=== PATIENT | male | born 1975 | race American Indian/Alaskan Native ===

== ENCOUNTER 2019-07-29 18:26 | Emergency (ER) | payer OTHER, MEDICAID ==
[2019-07-29] MEDS ORDERED: SODIUM CHLORIDE 0.9% 1000 ML 2,000 ML IV ONE (19:23)
--- NOTE | 2019-07-29 19:29 | Emergency Department Report ---
ED General Adult HPI - General Chief complaint: Urogenital-Male Stated complaint: BLOOD IN URINE Time Seen by Provider: 07/29/19 18:51 Source: family, EMS (EMS records not available at time of chart dictation.), RN notes reviewed, old records reviewed Mode of arrival: Stretcher Limitations: Physical Limitation - History of Present Illness Initial comments: Patient is nonverbal. Entire history obtained from patient's mother, who is his caregiver, as well as review of old medical records. The patient has chronic respiratory failure, on chronic home oxygen, history of condom catheter, history of urinary tract infection, history of type 2 diabetes, history of traumatic brain injury, nonverbal at baseline, G-tube for feeding, contracted limbs. Patient is DO NOT RESUSCITATE as per his mother. His mother brings the patient in for evaluation of new onset hematuria. This has started within the past day or so. It is constant. It does not radiate anywhere. It does not have exacerbating or relieving factors that she is aware. The patient's mother indicates that he's not started any new medications. He's been coughing a little bit too, and may have some shortness of breath. She is worried about pneumonia. The patient's mother indicates no recent travel or surgeries. She indicates that she is not interested in any surgical interventi on as per his goals of care. She indicates that she is okay with IV fluids, antibiotics, and symptom control. -: Gradual Severity scale (0 -10): 0 Quality: other Consistency: other Improves with: other Worsens with: other - Related Data Home Medications Medication Instructions Recorded Confirmed Last Taken Gabapentin 300 mg PO Q8HR 09/13/16 09/13/16 09/12/16 08:00 Previous Rx's Medication Instructions Recorded Last Taken Type ALBUTEROL NEB's [Proventil 0.083% 2.5 mg IH TID PRN 30 Days neb 09/16/16 Unknown Rx NEBS] Polyethylene Glycol 3350 [Miralax 17 gm FEEDTUBE BID PRN 30 Days 09/16/16 Unknown Rx 3350] powd.pack levoFLOXacin [Levaquin TAB] 500 mg PO QDAY #5 tablet 09/16/16 Unknown Rx levoFLOXacin [Levaquin] 750 mg PO QDAY #10 tablet 07/29/19 Unknown Rx Allergies Allergy/AdvReac Type Severity Reaction Status Date / Time No Known Allergies Allergy Verified 09/12/16 17:02 ED Review of Systems ROS: Stated complaint: BLOOD IN URINE Other details as noted in HPI Constitutional: denies: fever Respiratory: cough, shortness of breath Cardiovascular: denies: syncope Gastrointestinal: other (chronic black stool secondary to iron sulfate). denies: nausea, vomiting, diarrhea, hematemesis, melena, hematochezia Genitourinary: hematuria Musculoskeletal: as per HPI Skin: as per HPI Neurological: as per HPI Psychiatric: as per HPI Hematological/Lymphatic: as per HPI ED Past Medical Hx - Past Medical History Hx Hypertension: Yes Hx GERD: Yes Additional medical history: traumatic brain injury at 16yrs old - Surgical History Additional Surgical History: PEG - Social History Smoking Status: Never Smoker Substance Use Type: None - Medications Home Medications: Home Medications Medication Instructions Recorded Confirmed Last Taken Type Gabapentin 300 mg PO Q8HR 09/13/16 09/13/16 09/12/16 08:00 History ALBUTEROL NEB's [Proventil 0.083% 2.5 mg IH TID PRN 30 Days neb 09/16/16 Unknown Rx NEBS] Polyethylene Glycol 3350 [Miralax 17 gm FEEDTUBE BID PRN 30 Days 09/16/16 Unknown Rx 3350] powd.pack levoFLOXacin [Levaquin TAB] 500 mg PO QDAY #5 tablet 09/16/16 Unknown Rx levoFLOXacin [Levaquin] 750 mg PO QDAY #10 tablet 07/29/19 Unknown Rx ED Physical Exam - General Limitations: Physical Limitation, Other (chaperoned by CAMILLA Bull) General appearance: in no apparent distress - Head Head exam: Present: atraumatic, normocephalic - Eye Eye exam: Present: normal appearance - ENT ENT exam: Present: normal orophraynx, normal external ear exam - Neck Neck exam: Present: normal inspection, full ROM. Absent: tenderness, meningismus - Respiratory Respiratory exam: Present: decreased breath sounds. Absent: respiratory distress, wheezes, rales, rhonchi, stridor - Cardiovascular Cardiovascular Exam: Present: normal rhythm, tachycardia, normal heart sounds. Absent: systolic murmur, diastolic murmur, rubs, gallop - GI/Abdominal GI/Abdominal exam: Present: soft. Absent: distended, tenderness, guarding, rebound, rigid, pulsatile mass - Rectal Rectal exam: Present: normal inspection, other (small sacral wounds noted.) - exam: Present: normal inspection, other (condom catheter in place draining clear red urine) - Extremities Exam Extremities exam: Present: normal inspection, other (2+ pulses noted in the bilateral upper and lower extremities. The pelvis is stable. There is no long bony tenderness. The muscular compartments are soft. There is no redness, pus, streaking or erythema.) - Back Exam Back exam: Present: normal inspection. Absent: CVA tenderness (R), CVA tenderness (L), paraspinal tenderness, vertebral tenderness - Neurological Exam Neurological exam: Present: other (the patient is awake. The patient is nonverbal. The patient has contractures bilateral upper and lower extremities.) - Skin Skin exam: Present: warm, dry, intact, normal color. Absent: rash ED Course Vital Signs 07/29/19 07/29/19 07/29/19 18:55 19:00 19:02 Temperature Pulse Rate 104 H 104 H 105 H Respiratory 21 26 H 22 Rate Blood Pressure 115/81 Blood Pressure [Right] O2 Sat by Pulse 100 100 Oximetry 07/29/19 07/29/19 07/29/19 19:08 19:30 20:00 Temperature Pulse Rate 105 H 104 H 106 H Respiratory 22 21 21 Rate Blood Pressure 115/81 Blood Pressure 115/81 [Right] O2 Sat by Pulse 100 100 100 Oximetry 07/29/19 07/29/19 07/29/19 20:30 20:52 20:53 Temperature 98.7 F Pulse Rate 107 H Respiratory 20 24 Rate Blood Pressure Blood Pressure [Right] O2 Sat by Pulse 100 Oximetry - Reevaluation(s) Reevaluation #1: 07/29/19 20:50 Differential diagnosis, including but not limited to: Chronic respiratory failure, bronchitis, pneumonia, urinary tract infection Assessment and plan: 44-year-old gentleman with mother, brought for new onset painless hematuria, and cough and shortness of breath. The patient is afebrile with reassuring vital signs with the exception of mild tachycardia. This is most likely secondary to dehydration. Extensive discussion had with mother regarding goals of care. She does not want any invasive interventions to be administered, she does not want any surgical or operative interventions to be administered. We did have a long discussion about the possibility of a pulmonary embolism. We talked about that even if a PE were identified, therapy would include systemic anticoagulatio n, and possible surgical interventions depending on the size. The mother is not interested in this. This conversation was witnessed by nurse Kera Bull Screening laboratory studies reviewed and appreciated. X-ray of the chest is pending. Urinalysis is pending at this time. Reevaluation #2: 07/29/19 22:10 Laboratory studies reviewed and appreciated. X-ray of the chest evaluated by myself. Secondary to technical issues, the x-ray technologist is not able to transmit the x-ray to radiology for formal interpretation. Urinalysis is also appreciated. Patient will be covered empirically with Levaquin, which should cover urinary pathogens as well as pulmonary pathogens. Mother it is endorsing desire to be discharged. ED Medical Decision Making - Lab Data Result diagrams: 07/29/19 19:59 07/29/19 19:59 Vital Signs 07/29/19 07/29/19 19:02 19:08 Pulse Rate 105 H 105 H Respiratory 22 22 Rate Blood Pressure 115/81 [Right] O2 Sat by Pulse 100 100 Oximetry Lab Results 07/29/19 07/29/19 07/29/19 Range/Units 19:59 19:59 19:59 WBC 8.8 (4.5-11.0) K/mm3 RBC 3.94 (3.65-5.03) M/mm3 Hgb 11.5 L (11.8-15.2) gm/dl Hct 38.1 (35.5-45.6) % MCV 97 H (84-94) fl MCH 29 (28-32) pg MCHC 30 L (32-34) % RDW 13.8 (13.2-15.2) % Plt Count 168 (140-440) K/mm3 PT 13.3 (12.2-14.9) Sec. INR 1.00 (0.87-1.13) APTT 100.0 H* (24.2-36.6) Sec. Sodium 139 (137-145) mmol/L Potassium 5.1 H (3.6-5.0) mmol/L Chloride 93.6 L (98-107) mmol/L Carbon Dioxide 36 H (22-30) mmol/L Anion Gap 15 mmol/L BUN 12 (9-20) mg/dL Creatinine 0.2 L (0.8-1.5) mg/dL Estimated GFR > 60 ml/min BUN/Creatinine Ratio 60 % Glucose 78 (75-100) mg/dL Calcium 9.4 (8.4-10.2) mg/dL Total Bilirubin 0.20 (0.1-1.2) mg/dL AST 22 (5-40) units/L ALT 19 (7-56) units/L Alkaline Phosphatase 119 (35-129) units/L Total Creatine Kinase 39 L (55-170) units/L Total Protein 8.1 (6.3-8.2) g/dL Albumin 3.3 L (3.9-5) g/dL Albumin/Globulin Ratio 0.7 % Rectal temperature 98.7 degrees. - Radiology Data Radiology results: pending, image reviewed interpreted by me: Single portable x-ray of the chest just left sided pneumonia/infiltrate Critical care attestation.: If time is entered above; I have spent that time in minutes in the direct care of this critically ill patient, excluding procedure time. ED Disposition Clinical Impression: Hematuria, Dyspnea Disposition: DC-01 TO HOME OR SELFCARE Is pt being admited?: No Does the pt Need Aspirin: No Condition: Stable Additional Instructions: Cultures were sent today, and results will be available in the next 3-5 days. Please have your primary care doctor contact the medical records department to obtain culture results. Take the antibiotic as directed. Follow-up with your primary care doctor within the next 3-5 days. X-ray of the chest was interpreted by ER physician as possible left-sided pneumonia. However, a formal radiology interpretation will be rendered within the next 12 hours. Occasionally, radiology interpretation is different than the initial interpretation. Therefore, please have your primary care doctor contact the medical records department to obtain formal x-ray interpretation. Please continue current outpatient medications. Patient may receive the Levaquin antibiotics through his feeding tube. Please return to the emergency room right away with projectile vomiting, change in mental status, confusion, inability to tolerate liquid feeds, new, worsening or different symptoms not present on the initial emergency room evaluation. Recommends patient follow up with an outpatient primary care doctor or urology specialist for blood in the urine within the next 7-10 days. Patient will need to follow-up to ensure resolution of presumed infection, and to ensure that the patient does not have a genitourinary tumor, cancer, malignancy. Referrals: NILSA HAIR MD [Referring] - 3-5 Days [facility] [Provider Group] - 3-5 Days [facility] [Provider Group] - 3-5 Days
[2019-07-29 20:15] LABS: Hematocrit 38.1 % (35.5-45.6); Hemoglobin 11.5 gm/dl (11.8-15.2); Mean Corpuscular HGB Conc 30 % (32-34); Mean Corpuscular Volume 97 fl (84-94); Platelet Count 168 K/mm3 (140-440); Red Blood Count 3.94 M/mm3 (3.65-5.03); Red Cell Distribution Width 13.8 % (13.2-15.2)
[2019-07-29 20:28] LABS: Alanine Aminotransferase 19 units/L (7-56); Albumin 3.3 g/dL (3.9-5); BUN/Creatinine Ratio 60; Blood Urea Nitrogen 12 mg/dL (9-20); Calcium 9.4 mg/dL (8.4-10.2)
[2019-07-29 20:52] LABS: Bilirubin,Urine Negative (Negative); Blood,Urine Large (Negative); Color,Urine Red (Yellow); Urobilinogen,Urine < 2.0 mg/dL (<2.0)
[2019-07-29 20:53] LABS: Bacteria,Urine 4+ /HPF (Negative); Mucus,Urine 1+ /HPF; RBC,Urine > 182.0 /HPF (0.0-6.0); WBC,Urine > 182.0 /HPF (0.0-6.0)
--- NOTE | 2019-07-29 23:02 | XRay Report ---
CHEST 1 VIEW, 07/29/2019 7:26 PM CLINICAL INFORMATION/INDICATION: Shortness of breath. Cough. COMPARISON: Chest radiograph, 09/12/2016 FINDINGS: SUPPORT DEVICES: None. HEART: The cardiac silhouette is normal in size. LUNGS/PLEURA: Patient positioning does limit evaluation. However, no focal airspace consolidation or large pleural effusion is identified. ADDITIONAL FINDINGS: Evaluation of bony structures again demonstrates a mixed lytic-sclerotic lesion of the medial right clavicle similar to the previous study. IMPRESSION: 1. No radiographic evidence of acute cardiopulmonary process. 2. Mixed lytic-sclerotic lesion of the right clavicle appearing similar to the prior study. Signer Name: Xiomara Fishman MD Signed: 07/29/2019 10:58 PM Workstation Name: [id number]
[2019-07-30 00:19] VITALS: BP 111/72
[2019-07-30 05:20] LABS: Hemolysis Index 14
== END 2019-07-30 00:19 | disposition home or self-care (01) ==
LOC: ED 18:26
DX: R31.9 Hematuria, unspecified (principal); R06.00 Dyspnea, unspecified; I10 Essential (primary) hypertension; K21.9 Gastro-esophageal reflux disease without esophagitis; Z79.899 Other long term (current) drug therapy
CPT/HCPCS: 36415; 71045; 80053; 81001; 82550; 85027; 85610; 85730; 87076; 87086; 87186; 96365; 99285; J1956; J7030